=== PATIENT | male | born 2000 | race Caucasian/White ===

== ENCOUNTER 2019-05-19 11:01 | Emergency (ER) | payer OTHER ==
[~2019-05-19] VITALS: Ht 175.3 cm; Wt 64.5 kg
[2019-05-19 11:03] VITALS: BP 97/56
--- NOTE | 2019-05-19 11:47 | REP ---
Fifth digit left hand four views : There is no fracture or dislocation. Mineralization and joint spaces are normal. There are no calcifications or foreign bodies. Impression: Negative fifth digit left hand . Electronically Signed by Steven Gamble MD 05/19/2019 11:38 A
== END 2019-05-19 12:19 | disposition home or self-care (01) ==
LOC: M ED 11:01
DX: S60.052A Contusion of left little finger without damage to nail, initial encounter (principal); W23.0XXA Caught, crushed, jammed, or pinched between moving objects, initial encounter; Y92.89 Other specified places as the place of occurrence of the external cause; F17.200 Nicotine dependence, unspecified, uncomplicated; Z91.018 Allergy to other foods

== ENCOUNTER 2022-03-08 13:14 | Emergency (ER) | payer OTHER ==
[~2022-03-08] VITALS: Ht 177.8 cm; Wt 63.9 kg
[2022-03-08 16:31] LABS: BASO % 0.3 % (0.0-1.0); EOS # 0.1 10^3/uL (0.0-0.5); HEMATOCRIT 41.5 % (42.0-52.0); LYMPH # 2.2 10^3/uL (1.5-5.0); LYMPH % 31.6 % (24.0-44.0); MEAN CORPUSCULAR HEMOGLOBIN 32.5 pg (27.0-33.0); MEAN CORPUSCULAR HGB CONC 36.1 g/dl (32.0-36.5); MONO # 0.4 10^3/uL (0.0-0.8); MONO % 5.3 % (2.0-8.0); NEUTROPHILS # 4.3 10^3/uL (1.5-8.5); NEUTROPHILS % 61.7 % (36.0-66.0); PLATELET COUNT, AUTOMATED 208 10^3/uL (150-450); RED BLOOD COUNT 4.61 10^6/uL (4.30-6.10)
[2022-03-08 16:51] LABS: BLOOD UREA NITROGEN 15 MG/DL (7-18); CALCIUM LEVEL 9.6 MG/DL (8.5-10.1); CARBON DIOXIDE LEVEL 27 MEQ/L (21-32); CHLORIDE LEVEL 106 MEQ/L (98-107); CREATININE FOR GFR 1.12 MG/DL (0.70-1.30); GLOMERULAR FILTRATION RATE > 60.0 (>60); GLUCOSE, FASTING 93 MG/DL (70-100); POTASSIUM SERUM 3.9 MEQ/L (3.5-5.1); SODIUM LEVEL 140 MEQ/L (136-145)
[2022-03-08 16:55] LABS: CK-MB VALUE MASS < 1.0 NG/ML (<3.6); CPK CREATINE PHOSPHOKINASE 145 U/L (39-308); MB/CK RELATIVE INDEX 0.69 (< OR =4)
[2022-03-08] MEDS ORDERED: HOLTER MONITOR XX ×2 (18:19→18:21)
[2022-03-08 18:30] LABS: THYROXINE (T4) 7.9 UG/DL (4.5-12.0)
[2022-03-08 18:37] VITALS: BP 133/68
== END 2022-03-08 18:39 | disposition home or self-care (01) ==
LOC: M ED 13:14
DX: R00.2 Palpitations (principal); R94.31 Abnormal electrocardiogram [ECG] [EKG]; Z91.018 Allergy to other foods